=== PATIENT | female | born 1955 | race Caucasian/White ===

== ENCOUNTER 2016-06-05 05:39 | Inpatient (IN) | payer OTHER, MEDICAID ==
--- NOTE | 2016-05-31 14:28 | PCM.ANEPRE ---
Anesthesia Pre-Op Review Reason for Review: STOP BANG 5, HTN Anesthesia Recommendations: Proceed with Procedure Additional Comments STOP BANG 5, HTN. BMI 31 Normal Echo. SVT 2013 Proceed with usual eval DOS Chart Reviewed by: Fredis Workman MD May 31, 2016 14:28
--- NOTE | 2016-06-01 17:50 | PCM.HPSURG ---
Subjective Date of Service: May 24, 2016 Referring Provider: Admitting Physician: Primary Care Physician: Mela Blas Attending Physician: Shen Escobedo MD Chief Complaint SEE BELOW History of Present Illness Patient: Mariluz Lopez Date of : 1955 Visit Type: Pre Op Visit Date: 05/30/2016 02:30 PM This 61 year old female presents for Preop C5-6 ACDF, Allograft and & Plating. History of Present Illness: 1. Preop C5-6 ACDF, Allograft, & Plating Anna Lopez is a 61 year old female referred by Primary Care Provider (PCP) Mela Blas PA-C who presents today's date 05/30/2016 for a preoperative type of appointment concerning the decision for surgery involving C5-6 anterior cervical discectomy and fusion, with allograft bone, percent anterior cervical plating from C5-6 secondary to a diagnosis of cervical spondylosis with myelopathy with related complaints of severe, intractable, and debilitating neck spasm & pain radiating to the lower back, shoulders, upper & lower extremities with dysesthesias, loss of coordination, impaired balance, & bladder spasticity. The patient consulted with Dr. Shen Escobedo M.D. on 05/10/2016 and found to have cervical spondylosis and symptoms of myelopathy. The cervical MRI shows cord compression and bilateral neuroforaminal narrowing at C5-6. She also has C4-5 retrolisthesis. A lateral xray with flexion and extension views shows a subtle decrease in the listhesis with flexion. This is not a significant ligamentous laxity. She was also noted to have rightCL4-5 neural foraminal narrowing, but no right C5 pain. The patient reports constant neck pain, and bilateral shoulder blade pain with flair ups of more intense pain. She reports that her arms have a diffuse tired heavy ache and that she gets episodes of cramping in her hands and feet and the cramping can wake her from sleep. Her hands feel jittery, she drops things and reports loss of coordination in her hands. She has constant low back pain, muscle tightness with flair ups of more severe lumbar spasms. She reports impairment of balance and has bladder spasticity, voiding 2-3 times each night. Cervical extension causes increased neck pain and paresthesias in the hands. She is primarily symptomatic from the cord compression and root compression at the C5-[address] Shen Escobedo M.D. the patient has significant cervical spondylosis with myelopathy related to primarily symptomatic C5-6 level cord & root compression indicating surgical decompression and fusion with instrumented stabilization at C5-6. The discussed all the risks and benefits associated with the procedure on 05/20/2016 as well as reasonable expectations with regards to surgical outcomes & the patient elected to proceed with surgery as planned. The patient denies related complete or acute loss of control of bowel or bladder function, saddle paresthesia or anesthesia. The patient has a pertinent positive past medical, surgical and social history for appendectomy, tubal ligation, lung biopsy, cholecystectomy, hysterectomy, hypertension, fibromyalgia (Dr. Esteban), history of palpitations, history of peripheral edema, chronic abdominal pain/diarrhea/constipation/nausea/vomiting, stress incontinence, nocturia, chronic joint pain, borderline diabetes, frequent headaches, depression, anxiety, possible inner ear disorder, diverticulosis, enteritis, bilateral trigger finger, positive H. pylori, high risk sleep apnea(never completed sleep study), chronic pain management & possibly chronic pain syndrome. The patient's related complaints have been a serious detriment to their happiness and activities of daily living. Having failed conservative treatment the patient presents today for their decision for surgery appointment involving C5-6 anterior cervical discectomy and fusion, with allograft bone, & anterior cervical plating from C5-6 for treatment of cervical spondylosis with myelopathy ; related to severe, intractable, and debilitating neck spasm & pain radiating to the lower back, shoulders, upper & lower extremities with dysesthesias, loss of coordination, impaired balance, & bladder spasticity. The procedure is scheduled to be performed by Dr. Shen Escobedo M.D. on 06/05/2016. PHYSICAL EXAM: This is a well developed, well nourished, female who is alert, cooperative, and appears to be in no acute distress with language and speech that is intact and fluent. There is evidence of recent or remote memory impairment. The patient' s knowledge is appropriate for age and level of education with a anxious affect & exaggerated pain behavior presentation. The patient ambulates with difficulty using a wide shuffling gait. Exam of the head is normocephalic. PERRL, EOMI, without facial droop, hearing grossly intact, nostrils patent, oral cavity and pharynx normal. Exam of the neck supple, without lymphadenopathy or thyromegaly. Exam or the heart reveals regular rate and rhythm without audible murmurs The lungs are clear to auscultation bilaterally The abdomen is non- tender and non-distended Exam of the cervical spine reveals that the skin is grossly intact and without gross deformity, or asymmetry of spinal muscles, decreased range of motion causing exaggerated pain behavior with positive significant multiple posterior cervical & shoulder tender points to palpation. Refused Spurling, positive L' hermitte's and refused distraction. Tone: Intact in the upper and lower extremities. Exam of the right upper extremity reveals that the skin is grossly intact with no significant deformity or joint abnormality. Strength in the deltoids, biceps , triceps, wrist extensors, wrist flexors, and intrinsic is rated 5-/5. There is hyper anesthesia & diminished gross to pinprick & light touch right C6 dermatomal distribution. Radial pulse is intact. DTRs: Biceps 3 +, triceps 3 + , brachioradialis3 +. Exam of the left upper extremity reveals that the skin is grossly intact with no significant deformity or joint abnormality. Strength in the deltoids, biceps , triceps, wrist extensors, wrist flexors, and intrinsic is rated 5/5. There is normal gross sensation to pinprick & light touch. Radial pulse is intact. DTRs: Biceps 3 +, triceps 3 +, brachioradialis 3 +. Exam of the thoracic and lumbar spine reveals the skin is grossly intact without gross deformity, or asymmetry of spinal muscles, diminished range of motion causing significant pain with positive multiple lumbar tender points to palpation without muscular fasciculations appreciated. Exam of the right lower extremity reveals that the skin is grossly intact with no significant deformity or joint abnormality. Strength in the hip flexors, quadriceps, gastrocnemius, tibialis anterior, and extensor hallucis longus is rated 5/5. There is normal gross sensation to pinprick & light touch. There is no edema. Peripheral pulses are intact. No obvious varicosities. Negative straight leg raise and negative Fabers/Patricks. DTRs: Patellar 3 +, cross adductor 3 +, & achillies 3 +. Exam of the left lower extremity reveals that the skin is grossly intact with no significant deformity or joint abnormality. Strength in the hip flexors, quadriceps, gastrocnemius, tibialis anterior, and extensor hallucis longus is rated 5/5. There is normal gross sensation to pinprick & light touch. There is no edema. Peripheral pulses are intact. No obvious varicosities. Negative straight leg raise and negative Fabers/Patricks. DTRs: Patellar 3 +, cross adductor 3 +, & achillies 3 +. CNII-XII within normal limits, difficulty with [id number], [id number]-[id number] & rapid alternating movements in the upper & lower extremities mostly grossly intact. There is negative Romberg's, bilateral clonus, and babinski's. Unable to tandem heel-to-toe walk. Positive bilateral Luis's. Problem List: Problem Description Anxiety Dizziness Diabetes Osteoarthritis Depression with anxiety Non-restorative sleep Fibromyalgia Spondylosis Carpal tunnel syndrome HTN Cigarette nicotine dependence without complication Paroxysmal supraventricular tachycardia Right wrist pain Excessive sweating Adrenal cortical nodule H. pylori GI infection Right-sided low back pain without sciatica Spinal stenosis in cervical region Medical/Surgical/Interim History Reviewed, no change. Last detailed document date:05/30/2016. Family History: Reviewed, no changes. Last detailed document date:05/30/2016. Social History: Tobacco use reviewed. Reviewed, no changes. Last detailed document date: 05/30/2016. Allergies: Ingredient Reaction Medication Name Comment ASPIRIN Nausea/Vomiting Only large amounts of ASA. OXYCODONE Itching Reviewed, no changes. Review of Systems System Neg/Pos Details MS Positive Back pain. Vital Signs Height Time ft in cm Last Measured Height Position % 2:03 PM 5.0 2.00 157.48 05/30/2016 Weight/BSA/BMI Time lb oz kg Context % BMI kg/m2 BSA m2 2:03 PM 178.80 81.102 dressed with shoes 32.70 Blood Pressure Time BP mm/Hg Position Side Site Method Cuff Size 2:03 PM 140/88 sitting left arm manual adult large Temperature/Pulse/Respiration Time Temp F Temp C Temp Site Pulse/min Pattern Resp/ min 2:03 PM 97.3 36.3 temporal 73 regular 20 Pulse Oximetry/FIO2 Time Pulse Ox (Rest %) Pulse Ox (Amb %) O2 Sat O2 LPM Timing FiO2 % L/min Delivery Method 2:03 PM 98 Pain Scale Time Pain Score Method 2:03 PM 6/10 Numeric Pain Intensity Scale Measured By Time Measured by 2:03 PM Cammie Mays MA Physical Exam Exam Findings Details Comments SEE ABOVE Assessment/Plan # Detail Type Description 1. Assessment Cervical spondylosis with myelopathy (M47.12). 2. Assessment Preoperative examination (Z01.818). Patient Plan We including your Attending Surgeon have discussed the risks and benefits associated your scheduled procedure which you have verbally acknowledged understanding including but not limited to the possibility of an outcome that we are unable to predict or was not mentioned. 1. You are scheduled for a C5-6 anterior cervical discectomy and fusion, with allograft bone, & anterior cervical plating from C5-6 with Gregg Hinson M.D. at [facility] on 06/05/2016. 2. Check in time is 6 AM. Also please ignore instructions below if told otherwise by your preadmission nurse or if you do not take the medications listed below. 3. Nothing to eat after midnight the night before surgery. You may take all of your "approved" medications with small sips of water. Remember to take your a.m. hypertension medication if it is a beta barb and ends in "olol. Otherwise ask your doctor if you need to hold your a.m. hypertension medication. 4. No aspirin, ibuprofen, Naprosyn, or other NSAIDs starting 7 days prior to surgery. 5. Please stop Warfarin/Coumadin or other blood thinners such as Plavix, Aggrenox, or Xarelto 7 days prior to your surgical procedure and follow specific instructions from your prescribing provider. 6. Please stop Lovenox bridging in the morning one day prior to procedure. 7. Please stop Suboxone/Buprenorphine at least 4 days prior to procedure. 8. Go to the hospital today to get her preoperative testing done. Take the order form to the surgery desk on the second floor of the hospital, [facility] (main entrance next to the emergency entrance). I will notify you if there is any test results that require further workup prior to surgery. 9. Follow the instructions you were given today, use the cleansing cloths the night before as well as the morning of her surgery. 10. If you are prescribed inhalers, CPAP or BiPAP machines you use at home bring along with you to the hospital. 11. ONLY If you take medications for Diabetes: If you have an insulin pump continue lowest (typically night-time) basal rate into the a.m. If you do not have a pump check h your a.m. blood sugar and hold insulin if BS less than 100. If you are taking long-acting, intermediate acting (NPH) or 70/30 preparation : Take half on day of procedure. If you are taking ultra long-acting insulin such as glargine, Lantus either at night or in the a.m. continue as scheduled ( including day of surgery). If you take short acting regular insulin (insulin not delivered via pump) discontinue on day of procedure. 12. Please call if you have any questions before your surgery: [phone]. Today's instructions/counseling include(s) Pre-operative instructions given to the patient and or legal community health program representative(s) orally and in writing. 13. Our office will contact you if there are any test results that require further workup prior to surgery. Provider Plan The patient's history and examination as well as radiological findings were reviewed with Dr. Shen Escobedo M.D. and conveyed the patient in detail. The findings are consistent with cervical spondylosis with myelopathy and are most likely the cause of the patient's severe, intractable, and debilitating neck spasm & pain radiating to the lower back, shoulders, upper & lower extremities with dysesthesias, loss of coordination, impaired balance, & bladder spasticity. The patient has failed extensive conservative treatment for this condition. The treatment options were discussed with the patient. The options include attempt to live with the condition, reattempt conservative treatment, try a pain management intervention / injection or consider a surgical intervention. We are not extremely optimistic that further conservative treatment, pain management intervention and/or injection will adequately resolve the patient's symptoms of severe, intractable, and debilitating neck spasm & pain radiating to the lower back, shoulders, upper & lower extremities with dysesthesias, loss of coordination, impaired balance, & bladder spasticity. Therefore we recommend C5-6 anterior cervical discectomy and fusion, with allograft bone, & anterior cervical plating from C5-6. The patient was provided/offered educational materials pertaining to their diagnosis and the above discussed procedure. We discussed the risks and benefits associated with this surgery. A spine model was used to explain the nature of this type of surgery. The risk of the required anesthesia was also mentioned including but not limited to organ failure such as heart attack, pneumonia and stroke even . The risk of this type of surgery was also mentioned. Including but not limited to an unsuccessful outcome, residual symptoms, odynophagia, dysphasia or sore throat, referred or radiating posterior spinal myofascial inflammatory pain or spasm, post operative instability, instrumentation failure, sensory changes, blood loss, blood clots, wound infection, spinal cord or nerve damage, CSF or lymph leak, damage to neighboring structures such as the recurrent laryngeal nerve, perforation of the esophagus or trachea, pseudoarthrosis, adjacent level disease, Sharifa's Syndrome, vision loss, voice change, resulting in temporary or permanent dysfunction, even disability, paralysis, and . The recovery of this type of surgery was also mentioned. This includes but is not limited to reasonable expectations for the treatment of myelopathy involving the surgical decompression of the cervical spinal cord; which will stop the progression of the patient's condition but cannot guarantee improvements in any associated physical complaints. The patient verbalized understanding all the risks and benefits, knowing that it is impossible to predict or guarantee every surgical outcome; and would like to proceed with the above discussed procedure anyways. Surgery is scheduled for 06/05/2016 The standard [facility] preoperative screening tests, medicine restrictions, and logistical protocols apply. Any preoperative testing is within normal limits to undergo the above discussed procedure unless otherwise noted in the medical record. Medications (added, continued or stopped this visit): Start Date Medication Directions Stop Date 01/17/2016 buspirone 10 mg tablet take 1 tablet by oral route 2 times every day 01/17/2016 gabapentin 100 mg capsule take 1 capsule by oral route 2 times every day 01/03/2016 gabapentin 300 mg capsule take 2 capsule by oral route every day 05/22/2016 hydrocodone 5 mg-acetaminophen 325 mg tablet take 1 tablet by oral route every 6 hours as needed for pain 06/04/2016 Bittinger 10 mg-325 mg tablet take 1-2 tablet by oral route every 4 - 6 hours as needed for pain 05/22/2016 tramadol 50 mg tablet take 1 - 2 tablets by ORAL route every day as needed 06/04/2016 Valium 5 mg tablet take 1 - 2 Tablet by oral route every 8 hours as needed for spasm Counseling/Educational Factors: Counseling / educational factors reviewed. Counseling / educational factors reviewed. This is a visit of 60 minutes. 50 minutes were spent counseling. The patient was checked out at 4:31 PM. This document may have been created using voice recognition software or other electronic means and may contain inadvertent property supervisor errors. Provider: Jay NORWOOD 05/30/2016 05:46 PM Document generated by: Jay Tan 05/30/2016 05:46 PM CC Providers: Mela Blas [address] [place] [address] [place] [id number] [place] [address] w w w Charlene s r c l i n i c s . o r g Allergy Allergies: Coded Allergies: aspirin (Verified Adverse Reaction, Severe, Nausea,Vomiting, 05/30/16) HIGH DOSE ASPIRIN ONLY oxycodone (Verified Adverse Reaction, Severe, ITCHING, 05/30/16) PMH HEENT History History of ENT Problems?: Yes HEENT History: Positive for:: Hearing Problem Sinus Problem (HX OF SINUSITIS) Cardiovascular History History of Heart Problems?: Yes Cardiovascular History: Positive for:: Atrial Fibrillation (HX SVT) Chest Pain (12/2013 TESTING WNL-PROB R/T SVT) Edema (C/OF UPPER EXTREMITY SWELLING) Hypertension Irregular Heartbeat (HX SVT REPORTS PALPITATIONS) Denies:: Heart Murmur (ECHO 02/2014 EF 65-70%) Valvular Heart Disease Other Cardiac History: C/OF BRUISING EASILY Respiratory History of Respiratory Problem: Yes Respiratory History: Positive for:: Chest Surgery (S/P LUNG BX) Dyspnea ([place] R/T SVT) Denies:: Pneumonia (HX BRONCHITIS) Use of C-PAP Machine Neurological History Hx Neurologic Problems?: Yes Neurological History: Positive for:: Dizziness (R/T SVT) Gastrointestinal History HX of GI Problems?: Yes Gastrointestinal History: Positive for:: Gall Bladder Disease (S/P CRISTIAN) Gastroesphageal Reflux (HX OF UNTREATED H PYLORI-REFERRED TO GI) Other GI Pertinent History: S/P APPY Genitourinary History Hx of Gu Problems?: Yes Female/Male History Reproductive History Female: Denies: Currently ? (S/P BTL) Skin History Skin History: Denies:: History Skin Disorders? Pressure Ulcers Musculoskeletal History Hx Musculoskeletal Problems?: Yes Musculoskeletal History: Positive for:: Fibromyalgia Osteoarthritis Denies:: Back Injury (C/OF LOWER BACK & NECK PAIN) Psycho Social History Hx of Psycho/Social Problems?: Yes Psycho Social History: Positive for:: Anxiety Hx Depression Other History Hx Any Other Health Problems?: Yes Other History: Positive for:: Hospitalization Denies:: Cancer Endocrine Disease (C/OF SWEATS) Thyroid Disease Diabetes: No (BORDERLINE) Social History Smoking Status: Never Smoker Jay Tan PA-C Jun 01, 2016 17:49
[2016-06-05] VITALS (16 sets, daily range): BP systolic 138–181; BP diastolic 75–123; PULSE 62–82; RESP 10–17; O2SAT 92–100
[~2016-06-05] VITALS: Ht 158.8 cm; Wt 79.5 kg
[~2016-06-05 05:39] MED LIST: BUSP10TA2 PO; GABA-500 PO; GABA600T2 PO; HYDR-4003 PO; Lactated Ringer's 1,000 ML IV ONE; TRAM50TA2 PO
[2016-06-05] MEDS ORDERED: Bacitracin 50,000 unit Inj IRRIGATION ONE (06:00)
[2016-06-05] MEDS ORDERED: Thrombin Powder 5,000 Unit TOPICAL ONE (06:00)
[2016-06-05] MEDS ORDERED: CeFAZolin 2 Gm/50 mL D5W Premix IV ONE (06:00)
[2016-06-05] MEDS ORDERED: Lactated Ringer's 500 ML IV PRN (07:01)
[2016-06-05] MEDS ORDERED: Lactated Ringer's 1,000 ML IV SCH (07:01)
[2016-06-05] MEDS ORDERED: HYDROmorphone 1 mg/mL Inj IVPUSH PRN ×2 (07:05→10:10)
[2016-06-05] MEDS ORDERED: hydrOXYzine Inj 25 MG/1 mL SDV IM PRN (07:05)
[2016-06-05] MEDS ORDERED: Atropine 0.4 mg/mL Inj IVPUSH PRN (07:05)
[2016-06-05] MEDS ORDERED: EPHEDrine Sulfate 50 mg/mL Inj IM PRN (07:05)
[2016-06-05] MEDS ORDERED: Phenylephrine 10,000 mCg/mL Inj IVPUSH PRN (07:05)
[2016-06-05] MEDS ORDERED: Ondansetron 2 mg/mL 2 mL Inj IVPUSH PRN ×2 (07:05→10:10)
[2016-06-05] MEDS ORDERED: Labetalol 5 mg/mL 4 mL Inj IV PRN (07:05)
[2016-06-05] MEDS ORDERED: MetoCLOpramide 5 mg/mL 2 mL Inj IVPUSH PRN (07:05)
[2016-06-05] MEDS ORDERED: EPHEDrine Sulfate 50 mg/mL Inj IVPUSH PRN (07:05)
[2016-06-05] MEDS ORDERED: hydrALAZINE 20 mg/mL Inj IVPUSH PRN (07:05)
[2016-06-05] MEDS ORDERED: Bupivacaine-MPF 0.5% 30 mL Inj INFILTRATE ONE (07:26)
--- NOTE | 2016-06-05 07:52 | PCM.HPANE ---
Patient Data Surgeon Admitting Provider: Attending Provider:Shen Escobedo MD Primary Care Physician:Mela Blas Other Provider:Talita Perezingham Anesthesia Reason for Visit Cervical Spondylosis With Myelopathy Ht/WT & BMI Height (Feet): 5 Height (Inches): 2.5 Weight (Kilograms): 79.5 Body Mass Index 31.00 Allergies Coded Allergies: aspirin (Verified Adverse Reaction, Severe, Nausea,Vomiting, 05/30/16) HIGH DOSE ASPIRIN ONLY oxycodone (Verified Adverse Reaction, Severe, ITCHING, 05/30/16) Past Anesthesia History Anesthesia History: Denies:: Anesthesia Reactions, Malignant Hyperthermia Diabetes History Hx Diabetes?: No Type of Diabetes: Type II Glycemic Control: Diet Controlled Current Bedside Blood Glucose: 100 MRSA MRSA: No Medications Hypertension Medication: No Home Meds Incl Beta Tyrell: No Active Scripts Hydrocodone-Acetaminophen 5-325 mg 1 Each Tablet1 Tablet PO QID PRN For Pain # 12 TABLET Ref 0 Prov:Aftab Benitez PAC 10/14/15 Reported Medications Buspirone 10 Mg Iytzaa21 Mg PO DAILY Ref 0 05/30/16 Tramadol 50 Mg [id number] Mg PO DAILY PRN For Pain Ref 0 05/30/16 Gabapentin 600 Mg [id number] Mg PO HS 30 Days Ref 0 07/26/14 Discontinued Reported Medications Gabapentin 100 Mg [id number] Mg PO BID 30 Days Ref 0 05/30/16 Aspirin (Aspir-Low)81 Mg Tablet.dr81 Mg PO DAILY 09/24/13 Hydrochlorothiazide 12.5 Mg Retvwvo45.5 Mg PO DAILY 09/24/13 Losartan Potassium 100 Mg Qkpslj777 Mg PO DAILY 09/24/13 History History of ENT Problems?: Yes HEENT History: Positive for:: Hearing Problem Sinus Problem (HX OF SINUSITIS) Hx of Heart Problems?: Yes Cardiovascular History: Positive for:: Atrial Fibrillation (HX SVT) Chest Pain (12/2013 TESTING WNL-PROB R/T SVT) Edema (C/OF UPPER EXTREMITY SWELLING) Hypertension Irregular Heartbeat (HX SVT REPORTS PALPITATIONS) Denies:: Heart Murmur (ECHO 02/2014 EF 65-70%) Valvular Heart Disease Other Cardiac History: C/OF BRUISING EASILY Hx of Respiratory Problem?: Yes Respiratory History: Positive for:: Chest Surgery (S/P LUNG BX) Dyspnea ([place] R/T SVT) Denies:: Pneumonia (HX BRONCHITIS) Use of C-PAP Machine Hx Neurologic Problems?: Yes Neurological History: Positive for:: Dizziness (R/T SVT) Hx of GI Problems?: Yes Gastrointestinal History: Positive for:: Gall Bladder Disease (S/P CRISTIAN) Gastroesphageal Reflux (HX OF UNTREATED H PYLORI-REFERRED TO GI) Other GI Pertinent History: S/P APPY Hx of Problems?: Yes Female Hx: Denies:: Currently Skin History: Denies:: History Skin Disorders? Pressure Ulcers Hx Musculoskeletal Problems?: Yes Musculoskeletal History: Positive for:: Fibromyalgia Osteoarthritis Denies:: Back Injury (C/OF LOWER BACK & NECK PAIN) Hx of Psycho/Social Problems?: Yes Psycho Social History: Positive for:: Anxiety Hx Depression Hx Surgeries?: Yes (LUNG BX,HYST,BTL,CRISTIAN,APPY) Hx Any Other Health Problems?: Yes Other History: Positive for:: Hospitalization Denies:: Cancer Endocrine Disease (C/OF SWEATS) Thyroid Disease History Blood Transfusions: Denies:: Blood Transfusions Hx Diabetes: NoBedside Blood Glucose: 100 Smoking Status: Current Every Day Smoker Never Smoker Have You Smoked inLast 12 mo: YesApprox How Many Cigarettes/day: 35YR HX Stop/Bang S-Snoring: Do You Snore Loudly: Yes T-Tired: feel tired, fatigued: Yes O-Obsered: Observed not breath: Yes P-Blood Pressure: treated: Yes B- Body Mass Index > 35 kg/m2: No A- Age over 50: Yes N- Neck Large Circumference: No G- Gender Male: No JENI Total Score: 5 JENI Risk Assessment: High Risk, =/>3 Yes Risk Assessment Category Category 1A: Patient has history of documented sleep apnea, and HAS NOT received any narcotic, sedative or anesthesia administration during this stay. Category 1B: Patient has history of documented sleep apnea, and HAS received any narcotic , sedative or anesthesia administration during this stay Category 2: Patient has SUSPECTED Obstructive Sleep Apnea, and HAS received any narcotic , sedative or anesthesia administration during this stay. Category 3: Patient has SUSPECTED Obstructive Sleep Apnea and HAS NOT received narcotic, sedative or anesthesia administration during this stay. Category 4: Outpatient in Procedural Areas with known sleep apnea or who screen positive for High Risk via the STOP/BANG questionnaire. Exam Exam Vital Signs Vital Signs Date Time Temp Pulse Resp B/P Pulse Ox O2 Delivery O2 Flow Rate FiO2 06/05/16 06:19 36.1 63 17 151/80 96 Room Air General Appearance: Moderate Distress (neck discomfort) HEENT/AIRWAY: MP 2, Neck Movement (limited to pain with extension) Lungs: Clear to Auscultation, Normal Air Movement Heart: Exam Unremarkable, Regular Rate/Rhythm, No Murmurs/Rubs/Gallops Meds/Labs/Diagnostics Admission Meds Current Medications Lactated Ringer's (Lr) 1,000 ml @ 120 mls/hr Q8H20M ONCE IV Last administered on 06/05/16t 05:53; Start 06/05/16 at 05:00; Stop 06/05/16 at 13:19 Bedside Blood Glucose: 100 Plan Impression Patient chart reviewed, patient interviewed and anesthestic plan with risks, benefits, and alternatives discussed, and informed consent obtained. NPO Status: 2100 06/04/16 ASA Physical Status: ASA3 Severe Disease Anesthetic Support Modalities: [place] Scope Anesthetic Plan: GA Bene/Risks/Altern/Consents: Yes HP Complete Prior to Induction: Yes Shankar Diana MD Jun 05, 2016 07:03
--- NOTE | 2016-06-05 08:25 | DRSVH ---
PROCEDURE: X-RAY CERVICAL SPINE, 1 VIEW INDICATIONS: CERVICAL SPONDYLOSIS WITH MYELOPATHY TECHNIQUE: Single lateral view of the cervical spine acquired. COMPARISON: None. FINDINGS: Bones: A localizer device is present anteriorly at the C5-C6 disc space level. There is a screw proje cting over the C5 vertebral body. Soft tissues: No prevertebral soft tissue swelling. IMPRESSION: Localization of C5 and C5-C6 as described above. Findings discussed with Dr. Escobedo on at 0818 hrs. Dictated by: Alex Box M.D. on 06/05/2016 at 8:22 Approved by: Alex Box M.D. on 06/05/2016 at 8:22
[2016-06-05] MEDS ORDERED: Promethazine 12.5 mg/50 mL-NS 12.5 MG in IV Premix 1 EACH IV STA (10:03)
[2016-06-05] MEDS ORDERED: Sodium Biphos-Phos 133 mL Enema RECTAL PRN (10:10)
[2016-06-05] MEDS ORDERED: Magnesium Hydroxide 10 mL Oral Concentration PO PRN (10:10)
[2016-06-05] MEDS ORDERED: hydrOXYzine Pamoate 25 mg Capsule PO PRN (10:10)
[2016-06-05] MEDS ORDERED: Polyethylene Glycol (PEG) 17 Gm Powder PO PRN (10:10)
[2016-06-05] MEDS: Dexamethasone 4 mg/mL Inj IVPUSH SCH ×3 (10:10→22:28)
[2016-06-05] MEDS ORDERED: Benzocaine-Menthol Lozenge 2/Pkg PO PRN (10:10)
[2016-06-05] MEDS ORDERED: Senna-Docusate 8.6-50 mg Tablet PO PRN (10:10)
[2016-06-05] MEDS: fentaNYL-PF 50 mCg/mL 2 mL Inj IVPUSH PRN ×2 (10:14→10:32)
--- NOTE | 2016-06-05 10:16 | OP ---
[address] [address] OPERATIVE REPORT PATIENT: ESPERANZA HODGSON : 1955 MR#: [id number] ADMIT: 06/05/2016 JOB ID: [id number] DATE OF SURGERY: 06/05/2016 PREOPERATIVE DIAGNOSIS(ES): Cervical spondylosis with myelopathy. POSTOPERATIVE DIAGNOSIS(ES): Cervical spondylosis with myelopathy. PROCEDURE: C5-6 anterior cervical diskectomy and fusion with allograft bone and C5-6 anterior plating. SURGEON: Shen Escobedo MD. MILK PICKUP TRUCK DRIVER: Jay Tan PA-C. ANESTHESIA: General with Shankar Diana MD. ESTIMATED BLOOD LOSS: 50 cc. DRAINS: One AWILDA. COMPLICATIONS: None. INDICATIONS: This patient presented with symptoms of cervical myelopathy. She was found to have spondylosis with cord compression at C5-6 and bilateral neural foraminal narrowing. PROCEDURE IN DETAIL: The patient was taken to the operating room on June 05, 2016, placed under general anesthesia, placed supine with her head supported on a donut, prepped and draped sterile. The right side of the neck was infiltrated with 0.5% plain Marcaine. An incision was made transversely on the right side of the neck extending from the midline to the sternocleidomastoid at the level of C5. The incision was carried down sharply through the skin and subcutaneous tissues. Hemostasis was achieved with the bipolar electrocautery. The platysma was incised and blunt dissection was used to create a plane just medial to the sternocleidomastoid. The carotid was palpated and mobilized laterally. The esophagus and trachea were mobilized medially with an appendectomy retractor. A 12 mm Lincoln pin was placed into the vertebral body of C5 and used as a marker for the intraoperative lateral C-spine x-ray. The x-ray demonstrated the Lincoln pin in the vertebral body of C5, and also gave a measurement of the depth of the C5 vertebral body, which I extended approximately 45 mm beyond the tip of the 12 mm Lincoln pin. For this reason, I felt that the 12 mm screws would work well in this patient. Deep retractors were placed with the blades beneath the longus coli musculature at the C5-6 level and distracted open. A second Lincoln pin was put into the vertebral body of C6. The Lincoln pins were distracted open at the C5-6 level. The microscope was brought into position, sighting down the C5-6 disk space. The annulus of the C5-6 disk was disrupted with the monopolar, then the disk material was removed piecemeal with curette. The high-speed bur was used to take down the anterior osteophytes at C5-6, the posterior osteophytes and widen the disk space. The posterior longitudinal ligament was resected and undermined with the Kerrison punch. The patient had bilateral foraminotomies to decompress the C6 roots bilaterally. The rasp set was then used to prepare the C5-6 disk level for the fusion rasping to 8 mm. An 8 mm allograft bone was selected to fit the C5-6 level. This donor bone measured 8 mm and tapered to 6 mm. The disk space was irrigated with antibiotic solution and inspected for hemostasis and the bone graft was placed at C5-6. The distraction was released and the bone graft was held firmly in position. A plate was then selected to span C5-6. The 16 mm dynamic titanium plate, a Hoang plate, that was manufactured by [employer], was selected to span the C5-6 level. The plate was then secured to the vertebral bodies of C5 and C6 with self-drilling fixed angle 12 mm titanium screws. A second intraoperative lateral C-spine film was obtained to confirm good placement of the bone graft, good placement of the plate and screws. The screws were all locked into position. The spacing bar was removed from the Hoang plate. Then, the wound was irrigated with antibiotic solution. Hemostasis was achieved with the bipolar electrocautery. A AWILDA drain was placed at the base of the wound, brought out through a separate stab wound, and hooked up to bulb suction. The platysma was approximated with 3-0 Vicryl. The skin was closed with 4-0 Vicryl. Steri-Strips were applied to the skin, which was dressed with Telfa, gauze and tape, and the patient was placed in a soft cervical collar.
--- NOTE | 2016-06-05 10:21 | DRSVH ---
PROCEDURE: X-RAY CERVICAL SPINE, 1 VIEW INDICATIONS: CERVICAL SPINE SURGERY TECHNIQUE: Single lateral view of the cervical spine acquired. COMPARISON: [facility], CR, XR CERVICAL SPINE 1VW, 06/05/2016, 7:58. FINDINGS: Bones: No fractures or dislocations to the C6 level. Anterior fusion of C5-C6 has been performed. N o suspicious bony lesions. Soft tissues: No prevertebral soft tissue swelling. IMPRESSION: C5-C6 ACDF. Dictated by: Alex Box M.D. on 06/05/2016 at 10:19 Approved by: Alex Box M.D. on 06/05/2016 at 10:19
--- NOTE | 2016-06-05 10:23 | PCM.ANEP1 ---
Post Anesthesia Phase 1 PACU Phase 1 Assessment Date of Service: May 24, 2016 Vital Signs Vital Signs Date Time Temp Pulse Resp B/P Pulse Ox O2 Delivery O2 Flow Rate FiO2 06/05/16 10:10 74 10 181/83 100 Simple Mask 9 06/05/16 10:05 81 13 172/87 100 Simple Mask 9 06/05/16 10:01 36.2 82 15 164/96 100 Simple Mask 9 06/05/16 06:19 36.1 63 17 151/80 96 Room Air Anesthetic Administered: GA Level of Alertness: Awake, talking KERNS's with Equal Strength: Yes Pain: No Nausea or Vomiting: No Oxygen Delivery: Simple Mask Lungs: Clear to Auscultation, Normal Air Movement Shankar Diana MD Jun 05, 2016 10:23
--- NOTE | 2016-06-05 10:36 | PCM.ANEP2 ---
Post Anesthesia Evaluation ASA/CMS Post Anesthesia VS in Patient's Normal Range?: Yes Resp Stable; Airway Patent?: Yes CV Function & Hydration Stable: Yes Mental Status Recovered?: Yes Pain control Satisfactory?: Yes N/V Control Satisfactory?: Yes Shankar Diana MD Jun 05, 2016 10:35
[2016-06-05] MEDS ORDERED: Benzocaine (Hurricaine) 20% Unit-Dose Spray MUC_MEMBRM PRN (13:35)
[2016-06-05] MEDS ORDERED: fentaNYL-PF 50 mCg/mL 2 mL Inj ONE ×2 (13:46→14:31)
[2016-06-05] MEDS ORDERED: HYDROmorphone 0.5 mg/0.5 mL iSecure Syringe ONE (13:46)
[2016-06-05] MEDS: HYDROcodone-APAP 10-325 mg PO PRN ×2 (14:15→22:28)
[2016-06-05] MEDS ORDERED: hydrOXYzine Pamoate 25 mg Capsule ONE (14:17)
[2016-06-05] MEDS ORDERED: Remifentanil 1 mg/3 mL Inj ONE (14:31)
[2016-06-05] MEDS ORDERED: Ketamine 10 mg/mL 20 mL Inj ONE (14:31)
[2016-06-05] MEDS: Lactated Ringer's 1,000 ML IV SCH (15:26)
--- NOTE | 2016-06-05 16:05 | NUR ---
Arrival on [facility] Pt transferred from PACU at 1445. Pt alert and oriented x3. VSS. PIV asymptomatic and intact. No IV fluids running. Anterior neck dressing clean, dry, and intact; covered with soft neck collar. AWILDA drain in anterior neck draining serosanguineous fluid. Pt c/o 5/10 pain. Hydrocodone and vistaril were administered just before pt came to unit. Personal possessions were not sent with pt. Will call OR to have them brought to pt room. Care continues.
[2016-06-05] MEDS: CeFAZolin Inj 2 GM in IV Premix 1 EACH IV SCH (16:57)
[2016-06-05] MEDS: Senna-Docusate 8.6-50 mg Tablet PO SCH (21:11)
[2016-06-06] MEDS: CeFAZolin Inj 2 GM in IV Premix 1 EACH IV SCH (00:27)
[2016-06-06] MEDS: Lactated Ringer's 1,000 ML IV SCH ×2 (01:57→06:08)
--- NOTE | 2016-06-06 02:23 | NUR ---
Pain Patient states pain 6/10. Hydrocodone given. Patient's pain level came down to 4-5/10. Patient resting in bed using incentive spirometer frequently. Patient OOB to bathroom stand by assist. Tolerated activity well.
[2016-06-06] MEDS: Dexamethasone 4 mg/mL Inj IVPUSH SCH ×2 (04:06→10:37)
[2016-06-06 05:54] VITALS: BP 123/76; PULSE 56; RESP 15; O2SAT 92
[2016-06-06] MEDS: Senna-Docusate 8.6-50 mg Tablet PO SCH (07:37)
[2016-06-06] MEDS: HYDROcodone-APAP 10-325 mg PO PRN (07:39)
[2016-06-06] MEDS ORDERED: BusPIRone 15 mg Dividose Tablet PO SCH (08:30)
--- NOTE | 2016-06-06 09:35 | PCM.DISURG ---
Surgical Discharge Instruction Date of Service Jun 06, 2016 Dates of Hospitalization Date of Hospital Admission Jun 05, 2016 at 14:30 Providers Admitting Physician: Shen Escobedo MD Primary Care Physician: Mela Blas Attending Physician: Shen Escobedo MD Discharge Diagnosis Discharge Diagnosis Status post C5-6 anterior cervical discectomy and fusion, with allograft bone, & anterior cervical plating from C5-6 Post Operative diagnosis Status post C4-5 anterior cervical discectomy and fusion with allograft bone, & anterior cervical plating from C4-5 Additional Instructions Discharge Instructions Anterior Cervical Discectomy and Fusion What is my recovery like? The hospital stay is usually overnight. After the surgery, you might have a sore throat. This is very common due to the retraction (moving) of the esophagus and trachea. The sore throat usually resolves in 1-2 weeks. Drinking lots of fluids will help improve the symptoms. The cervical collar should be worn at night and for comfort only during the day. On your postoperative follow- up appointments, your Doctor will perform X-rays to see how well everything is healing. What are my restrictions? You should not lift anything heavier than five pounds. Avoid excessive movements of your neck until instructed specifically by your Doctor. Can I Shower? You may shower when you go home. You must remove the outside dressing on the 7th day after surgery, or change dressing as needed if soiled or saturated ( replacing new sterile gauze & water proof dressing) otherwise leave alone. The small pieces of tape (steri-strips) directly on top of the incision may get wet. The steri-strips will fall off on their own. Can I drive? No, you should not drive until specifically given permission from your Doctor in a follow up appointment. Most Patient's can drive in 2-3 weeks if they are not taking narcotic pain medications or muscle relaxers. You may ride in a car, but should avoid trips longer than two hours in duration. When can I return work / sports? Your Doctor will discuss your return to work with you on your first postoperative follow-up appointment. Most patients may return to work within 2 weeks for sedentary jobs. More physically demanding jobs may require 3-6 months of healing before such work can be considered. When should I call the doctor? You should call your Doctor or go to the Emergency Department if you develop chest pain, shortness of breath, a temperature greater than 101.5 F, severe uncontrolled pain or weakness, loss of bowel or bladder function, choking, swelling, lots or drainage, pus discharge or constipation. Instructions Regarding Comfort & Pain Medication Use: During the recovery period , even with the use of pain medication, you may experience pain at the site of surgery. You may also have the same type of pain you had before surgery. Please use your pain scale as a guide for taking your pain medication. When your pain is greater than 4 out of 10, or when your pain reaches your personal tolerable level of pain, take your pain medication as prescribed. Use your pain medication on an 'as needed' basis. This means if your pain level is within your tolerable level of pain you DO NOT need to take the medication. As you get better, you will notice you can increase the time interval between doses and decrease the number of tablets you are taking, gradually taking less and less pain medication. Taking pain medication when it is not necessary (for example when your pain is tolerable or acceptable) can result in dangerous side effects and over- sedation. Signs and symptoms of over-sedation include: drowsiness, excessive sleeping, slow or difficult breathing, slurred speech, impaired thinking, confusion, impaired motor coordination. If you have any of these symptoms stop taking the medication and immediately contact your doctor. IF SYMPTOMS ARE LIFE THREATENING CALL 911. To decrease pain and swelling, frequently apply an ice pack for 20 min intervals with at least one hour off. When to take Acetaminophen for pain? If you don't have liver problems, allergies and/or Tylenol is not in your current pain medication. Take Extra Strength Tylenol 500mg 2 tabs by mouth every 6 hours as needed for pain. DO NOT EXCEED 8 TABS PER DAY. Follow Up Plan Follow Up Plan Please follow up with physician medical assistant supervisor in outpatient neurosurgical clinic in 1 week for wound check. Follow-up Provider (F9): Jay Tan PA-C Additional Information Attending Statement All documentation reviewed & orders authorized by Dr. Shen Escobedo M.D. Jay Tan PA-C Jun 06, 2016 09:35
--- NOTE | 2016-06-06 09:45 | PCM.DC.SUR ---
Discharge Summary Date of Service: Jun 06, 2016 Date of Hospital Admission: Jun 05, 2016 at 14:30 Date of Operation(s): 06/05/2016 Date of Discharge: 06/06/2016 Diagnosis at Time of Discharge Status post C5-6 anterior cervical discectomy and fusion, with allograft bone, & anterior cervical plating from C5-6 Problems: Operation C5-6 anterior cervical discectomy and fusion, with allograft bone, & anterior cervical plating from C5-6 Brief History and Physical: Patient: Mariluz Lopez Date of : 1955 Visit Type: Pre Op Visit Date: 05/30/2016 02:30 PM This 61 year old female presents for Preop C5-6 ACDF, Allograft and & Plating. History of Present Illness: 1. Preop C5-6 ACDF, Allograft, & Plating Anna Lopez is a 61 year old female referred by Primary Care Provider (PCP) Mela Blas PA-C who presents today's date 05/30/2016 for a preoperative type of appointment concerning the decision for surgery involving C5-6 anterior cervical discectomy and fusion, with allograft bone, percent anterior cervical plating from C5-6 secondary to a diagnosis of cervical spondylosis with myelopathy with related complaints of severe, intractable, and debilitating neck spasm & pain radiating to the lower back, shoulders, upper & lower extremities with dysesthesias, loss of coordination, impaired balance, & bladder spasticity. The patient consulted with Dr. Shen Escobedo M.D. on 05/10/2016 and found to have cervical spondylosis and symptoms of myelopathy. The cervical MRI shows cord compression and bilateral neuroforaminal narrowing at C5-6. She also has C4-5 retrolisthesis. A lateral xray with flexion and extension views shows a subtle decrease in the listhesis with flexion. This is not a significant ligamentous laxity. She was also noted to have rightCL4-5 neural foraminal narrowing, but no right C5 pain. The patient reports constant neck pain, and bilateral shoulder blade pain with flair ups of more intense pain. She reports that her arms have a diffuse tired heavy ache and that she gets episodes of cramping in her hands and feet and the cramping can wake her from sleep. Her hands feel jittery, she drops things and reports loss of coordination in her hands. She has constant low back pain, muscle tightness with flair ups of more severe lumbar spasms. She reports impairment of balance and has bladder spasticity, voiding 2-3 times each night. Cervical extension causes increased neck pain and paresthesias in the hands. She is primarily symptomatic from the cord compression and root compression at the C5-[address] Shen Escobedo M.D. the patient has significant cervical spondylosis with myelopathy related to primarily symptomatic C5-6 level cord & root compression indicating surgical decompression and fusion with instrumented stabilization at C5-6. The discussed all the risks and benefits associated with the procedure on 05/20/2016 as well as reasonable expectations with regards to surgical outcomes & the patient elected to proceed with surgery as planned. The patient denies related complete or acute loss of control of bowel or bladder function, saddle paresthesia or anesthesia. The patient has a pertinent positive past medical, surgical and social history for appendectomy, tubal ligation, lung biopsy, cholecystectomy, hysterectomy, hypertension, fibromyalgia (Dr. Esteban), history of palpitations, history of peripheral edema, chronic abdominal pain/diarrhea/constipation/nausea/vomiting, stress incontinence, nocturia, chronic joint pain, borderline diabetes, frequent headaches, depression, anxiety, possible inner ear disorder, diverticulosis, enteritis, bilateral trigger finger, positive H. pylori, high risk sleep apnea(never completed sleep study), chronic pain management & possibly chronic pain syndrome. The patient's related complaints have been a serious detriment to their happiness and activities of daily living. Having failed conservative treatment the patient presents today for their decision for surgery appointment involving C5-6 anterior cervical discectomy and fusion, with allograft bone, & anterior cervical plating from C5-6 for treatment of cervical spondylosis with myelopathy ; related to severe, intractable, and debilitating neck spasm & pain radiating to the lower back, shoulders, upper & lower extremities with dysesthesias, loss of coordination, impaired balance, & bladder spasticity. The procedure is scheduled to be performed by Dr. Shen Escobedo M.D. on 06/05/2016. PHYSICAL EXAM: This is a well developed, well nourished, female who is alert, cooperative, and appears to be in no acute distress with language and speech that is intact and fluent. There is evidence of recent or remote memory impairment. The patient' s knowledge is appropriate for age and level of education with a anxious affect & exaggerated pain behavior presentation. The patient ambulates with difficulty using a wide shuffling gait. Exam of the head is normocephalic. PERRL, EOMI, without facial droop, hearing grossly intact, nostrils patent, oral cavity and pharynx normal. Exam of the neck supple, without lymphadenopathy or thyromegaly. Exam or the heart reveals regular rate and rhythm without audible murmurs The lungs are clear to auscultation bilaterally The abdomen is non- tender and non-distended Exam of the cervical spine reveals that the skin is grossly intact and without gross deformity, or asymmetry of spinal muscles, decreased range of motion causing exaggerated pain behavior with positive significant multiple posterior cervical & shoulder tender points to palpation. Refused Spurling, positive L' hermitte's and refused distraction. Tone: Intact in the upper and lower extremities. Exam of the right upper extremity reveals that the skin is grossly intact with no significant deformity or joint abnormality. Strength in the deltoids, biceps , triceps, wrist extensors, wrist flexors, and intrinsic is rated 5-/5. There is hyper anesthesia & diminished gross to pinprick & light touch right C6 dermatomal distribution. Radial pulse is intact. DTRs: Biceps 3 +, triceps 3 + , brachioradialis3 +. Exam of the left upper extremity reveals that the skin is grossly intact with no significant deformity or joint abnormality. Strength in the deltoids, biceps , triceps, wrist extensors, wrist flexors, and intrinsic is rated 5/5. There is normal gross sensation to pinprick & light touch. Radial pulse is intact. DTRs: Biceps 3 +, triceps 3 +, brachioradialis 3 +. Exam of the thoracic and lumbar spine reveals the skin is grossly intact without gross deformity, or asymmetry of spinal muscles, diminished range of motion causing significant pain with positive multiple lumbar tender points to palpation without muscular fasciculations appreciated. Exam of the right lower extremity reveals that the skin is grossly intact with no significant deformity or joint abnormality. Strength in the hip flexors, quadriceps, gastrocnemius, tibialis anterior, and extensor hallucis longus is rated 5/5. There is normal gross sensation to pinprick & light touch. There is no edema. Peripheral pulses are intact. No obvious varicosities. Negative straight leg raise and negative Fabers/Patricks. DTRs: Patellar 3 +, cross adductor 3 +, & achillies 3 +. Exam of the left lower extremity reveals that the skin is grossly intact with no significant deformity or joint abnormality. Strength in the hip flexors, quadriceps, gastrocnemius, tibialis anterior, and extensor hallucis longus is rated 5/5. There is normal gross sensation to pinprick & light touch. There is no edema. Peripheral pulses are intact. No obvious varicosities. Negative straight leg raise and negative Fabers/Patricks. DTRs: Patellar 3 +, cross adductor 3 +, & achillies 3 +. CNII-XII within normal limits, difficulty with [id number], [id number] & rapid alternating movements in the upper & lower extremities mostly grossly intact. There is negative Romberg's, bilateral clonus, and babinski's. Unable to tandem heel-to-toe walk. Positive bilateral Luis's. Problem List: Problem Description Anxiety Dizziness Diabetes Osteoarthritis Depression with anxiety Non-restorative sleep Fibromyalgia Spondylosis Carpal tunnel syndrome HTN Cigarette nicotine dependence without complication Paroxysmal supraventricular tachycardia Right wrist pain Excessive sweating Adrenal cortical nodule H. pylori GI infection Right-sided low back pain without sciatica Spinal stenosis in cervical region Medical/Surgical/Interim History Reviewed, no change. Last detailed document date:05/30/2016. Family History: Reviewed, no changes. Last detailed document date:05/30/2016. Social History: Tobacco use reviewed. Reviewed, no changes. Last detailed document date: 05/30/2016. Allergies: Ingredient Reaction Medication Name Comment ASPIRIN Nausea/Vomiting Only large amounts of ASA. OXYCODONE Itching Reviewed, no changes. Review of Systems System Neg/Pos Details MS Positive Back pain. Vital Signs Height Time ft in cm Last Measured Height Position % 2:03 PM 5.0 2.00 157.48 05/30/2016 Weight/BSA/BMI Time lb oz kg Context % BMI kg/m2 BSA m2 2:03 PM 178.80 81.102 dressed with shoes 32.70 Blood Pressure Time BP mm/Hg Position Side Site Method Cuff Size 2:03 PM 140/88 sitting left arm manual adult large Temperature/Pulse/Respiration Time Temp F Temp C Temp Site Pulse/min Pattern Resp/ min 2:03 PM 97.3 36.3 temporal 73 regular 20 Pulse Oximetry/FIO2 Time Pulse Ox (Rest %) Pulse Ox (Amb %) O2 Sat O2 LPM Timing FiO2 % L/min Delivery Method 2:03 PM 98 Pain Scale Time Pain Score Method 2:03 PM 6/10 Numeric Pain Intensity Scale Measured By Time Measured by 2:03 PM Cammie Mays MA Physical Exam Exam Findings Details Comments SEE ABOVE Assessment/Plan # Detail Type Description 1. Assessment Cervical spondylosis with myelopathy (M47.12). 2. Assessment Preoperative examination (Z01.818). Patient Plan We including your Attending Surgeon have discussed the risks and benefits associated your scheduled procedure which you have verbally acknowledged understanding including but not limited to the possibility of an outcome that we are unable to predict or was not mentioned. 1. You are scheduled for a C5-6 anterior cervical discectomy and fusion, with allograft bone, & anterior cervical plating from C5-6 with Gregg Hinson M.D. at [facility] on 06/05/2016. 2. Check in time is 6 AM. Also please ignore instructions below if told otherwise by your preadmission nurse or if you do not take the medications listed below. 3. Nothing to eat after midnight the night before surgery. You may take all of your "approved" medications with small sips of water. Remember to take your a.m. hypertension medication if it is a beta barb and ends in "olol. Otherwise ask your doctor if you need to hold your a.m. hypertension medication. 4. No aspirin, ibuprofen, Naprosyn, or other NSAIDs starting 7 days prior to surgery. 5. Please stop Warfarin/Coumadin or other blood thinners such as Plavix, Aggrenox, or Xarelto 7 days prior to your surgical procedure and follow specific instructions from your prescribing provider. 6. Please stop Lovenox bridging in the morning one day prior to procedure. 7. Please stop Suboxone/Buprenorphine at least 4 days prior to procedure. 8. Go to the hospital today to get her preoperative testing done. Take the order form to the surgery desk on the second floor of the hospital, [facility] (main entrance next to the emergency entrance). I will notify you if there is any test results that require further workup prior to surgery. 9. Follow the instructions you were given today, use the cleansing cloths the night before as well as the morning of her surgery. 10. If you are prescribed inhalers, CPAP or BiPAP machines you use at home bring along with you to the hospital. 11. ONLY If you take medications for Diabetes: If you have an insulin pump continue lowest (typically night-time) basal rate into the a.m. If you do not have a pump check h your a.m. blood sugar and hold insulin if BS less than 100. If you are taking long-acting, intermediate acting (NPH) or 70/30 preparation : Take half on day of procedure. If you are taking ultra long-acting insulin such as glargine, Lantus either at night or in the a.m. continue as scheduled ( including day of surgery). If you take short acting regular insulin (insulin not delivered via pump) discontinue on day of procedure. 12. Please call if you have any questions before your surgery: [phone]. Today's instructions/counseling include(s) Pre-operative instructions given to the patient and or legal mortician supplies sales representative(s) orally and in writing. 13. Our office will contact you if there are any test results that require further workup prior to surgery. Provider Plan The patient's history and examination as well as radiological findings were reviewed with Dr. Shen Escobedo M.D. and conveyed the patient in detail. The findings are consistent with cervical spondylosis with myelopathy and are most likely the cause of the patient's severe, intractable, and debilitating neck spasm & pain radiating to the lower back, shoulders, upper & lower extremities with dysesthesias, loss of coordination, impaired balance, & bladder spasticity. The patient has failed extensive conservative treatment for this condition. The treatment options were discussed with the patient. The options include attempt to live with the condition, reattempt conservative treatment, try a pain management intervention / injection or consider a surgical intervention. We are not extremely optimistic that further conservative treatment, pain management intervention and/or injection will adequately resolve the patient's symptoms of severe, intractable, and debilitating neck spasm & pain radiating to the lower back, shoulders, upper & lower extremities with dysesthesias, loss of coordination, impaired balance, & bladder spasticity. Therefore we recommend C5-6 anterior cervical discectomy and fusion, with allograft bone, & anterior cervical plating from C5-6. The patient was provided/offered educational materials pertaining to their diagnosis and the above discussed procedure. We discussed the risks and benefits associated with this surgery. A spine model was used to explain the nature of this type of surgery. The risk of the required anesthesia was also mentioned including but not limited to organ failure such as heart attack, pneumonia and stroke even . The risk of this type of surgery was also mentioned. Including but not limited to an unsuccessful outcome, residual symptoms, odynophagia, dysphasia or sore throat, referred or radiating posterior spinal myofascial inflammatory pain or spasm, post operative instability, instrumentation failure, sensory changes, blood loss, blood clots, wound infection, spinal cord or nerve damage, CSF or lymph leak, damage to neighboring structures such as the recurrent laryngeal nerve, perforation of the esophagus or trachea, pseudoarthrosis, adjacent level disease, Sharifa's Syndrome, vision loss, voice change, resulting in temporary or permanent dysfunction, even disability, paralysis, and . The recovery of this type of surgery was also mentioned. This includes but is not limited to reasonable expectations for the treatment of myelopathy involving the surgical decompression of the cervical spinal cord; which will stop the progression of the patient's condition but cannot guarantee improvements in any associated physical complaints. The patient verbalized understanding all the risks and benefits, knowing that it is impossible to predict or guarantee every surgical outcome; and would like to proceed with the above discussed procedure anyways. Surgery is scheduled for 06/05/2016 The standard [facility] preoperative screening tests, medicine restrictions, and logistical protocols apply. Any preoperative testing is within normal limits to undergo the above discussed procedure unless otherwise noted in the medical record. Medications (added, continued or stopped this visit): Start Date Medication Directions Stop Date 01/17/2016 buspirone 10 mg tablet take 1 tablet by oral route 2 times every day 01/17/2016 gabapentin 100 mg capsule take 1 capsule by oral route 2 times every day 01/03/2016 gabapentin 300 mg capsule take 2 capsule by oral route every day 05/22/2016 hydrocodone 5 mg-acetaminophen 325 mg tablet take 1 tablet by oral route every 6 hours as needed for pain 06/04/2016 Otterbein 10 mg-325 mg tablet take 1-2 tablet by oral route every 4 - 6 hours as needed for pain 05/22/2016 tramadol 50 mg tablet take 1 - 2 tablets by ORAL route every day as needed 06/04/2016 Valium 5 mg tablet take 1 - 2 Tablet by oral route every 8 hours as needed for spasm Counseling/Educational Factors: Counseling / educational factors reviewed. Counseling / educational factors reviewed. This is a visit of 60 minutes. 50 minutes were spent counseling. The patient was checked out at 4:31 PM. This document may have been created using voice recognition software or other electronic means and may contain inadvertent spare parts clerk errors. Provider: Jay NORWOOD 05/30/2016 05:46 PM Document generated by: Jay Tan 05/30/2016 05:46 PM CC Providers: Mela [address] Mor[place] [facility] [id number] [place] [address] w w lavon Chang s r c l i n i c s Charlene o perry g Hospital Course: Hospital Course: The patient was admitted through same day surgery and subsequently underwent a C5-6 anterior cervical discectomy and fusion, with allograft bone, & anterior cervical plating from C5-6. The patient tolerated the procedure well. The patient was then was transferred to PACU and then to the OSC floor. The patient was admitted for postoperative pain control, PT/OT, supervised for likely chronic pain syndrome co-morbidities with inpatient nurse monitoring, continuous pulse oximetry, and discharge planning. The Patient's overnight course was within normal limits. Currently the patient has complaints of surgical site pain, dysphagia, posterior referred myofascial inflammatory pain/spasm adequately controlled with her current postoperative analgesics & muscle relaxants. There is significant improvement of the patient' s residual myelopathic symptoms including but not limited to the symptoms related to her right upper extremity & lower back spasm. The patient denies headache, severe sore throat or dysphagia, chest pain, shortness of breath, abdominal pain, nausea, vomiting, constipation, diarrhea, or any new onset &/or location of pain, weakness or paresthesias aside from the surgical site. PHYSICAL EXAM This is a well developed, well nourished, female who is alert, cooperative, and appears to be in no acute distress with a pleasant affect & euthymic mood. Exam of the head is normocephalic. PERRL, EOMI, without facial droop, hearing grossly intact, nostrils patent, oral cavity and pharynx normal. Voice is within normal limits Exam or the heart reveals regular rate and rhythm without audible murmurs The lungs are clear to auscultation bilaterally. The abdomen is non- tender and non-distended. Exam of the anterior cervical surgical wound reveals that it is clean, dry, and intact; without signs of infection, inflammation, and/or hematoma. There is less than 30 mL operative from surgical drain in the last 8 hour period. Gross exam of the extremities reveals strength & sensation are grossly intact within the patient's normal baseline limits improve diminished sensation & talent acquisition operations manager strength in the right upper extremity. The patient was eventually able to get out of bed and ambulate within acceptable limits. Therapy services made recommendations for disposition. Flatus was appreciated and the patient was able to void without significant difficulty. The pain was gradually under control. The patient was afebrile on discharge. The patient's incision(s) was clean, dry and intact. The dressing was changed to the Surgeon's specifications. The output from the wound drain was less then 30cc's in an 8 hour period at discharge and therefore the drain was removed. The patient progressed well with rehabilitation and was subsequently discharged to home in stable condition. The patient verbally affirmed understanding when given clear instruction regarding the postoperative care and follow-up including but not limited to seeking immediate medical attention for chest pain, shortness of breath, a temperature greater than 101.5 F, severe uncontrolled pain or weakness, loss of bowel or bladder function, choking, lots or drainage, pus discharge or constipation. All questions were answered. Disposition: Home in stable condition. Follow-up Plan: Follow-up with physician admin assistant in outpatient neurosurgical clinic in 1 week for wound check. Buspirone (Buspirone) 10 Mg Tablet 10 MG PO DAILY (Reported) Gabapentin (Gabapentin) 600 Mg Tablet 600 MG PO HS (Reported) Discharge Medications: Prescribed during the patient's preoperative appointment. Attending Statement: All documentation reviewed & orders authorized by Dr. Shen Escobedo M.D. copies to: Mela Blas Scott PA-C Jun 06, 2016 09:45
--- NOTE | 2016-06-06 10:32 | DRSVH ---
PROCEDURE: X-RAY CERVICAL SPINE, 1 VIEW INDICATIONS: 61-year-old female status post C5-C6 anterior cervical discectomy and fusion. TECHNIQUE: Single lateral view of the cervical spine acquired. COMPARISON: [facility], CR, XR CERVICAL SPINE 1VW, 06/05/2016, 9:13. [facility], CR, XR CERVICAL SPINE 1VW, 06/05/2016, 7:58. [facility], CR, XR CERVICAL SPIN LAT F L EX 3VW, 05/02/2016, 12:50. FINDINGS: Bones: Patient is status post C5-C6 discectomy with interbody fusion and anterior fixation. Surgical hardware remains intact and in expected positions. There is C4-C5 and C6-C7 disc degeneration. No f ractures or dislocations to the T1 level. No suspicious bony lesions. Soft tissues: Overlying surgical drain is present. No prevertebral soft tissue swelling. IMPRESSION: C5-C6 anterior cervical discectomy and fusion hardware appears intact and in expected pos itions. Dictated by: Jakub Palmer M.D. on 06/06/2016 at 10:30 Approved by: Jakub Palmer M.D. on 06/06/2016 at 10:30
--- NOTE | 2016-06-06 10:34 | NUR ---
Evaluation completed. Please go to "Notes" then click on "Assessments and Notes" (bottom left corner of screen). Then select appropriate discipline tab on top of screen.
[2016-06-06] MEDS ORDERED: Succinylcholine Chloride 20 mg/mL 5 mL Inj ONE (11:24)
[2016-06-06] MEDS ORDERED: Dexamethasone 4 mg/mL Inj ONE (11:24)
[2016-06-06] MEDS ORDERED: Rocuronium 10 mg/mL 5 mL Inj ONE (11:24)
[2016-06-06] MEDS ORDERED: Ondansetron 2 mg/mL 2 mL Inj ONE (11:24)
[2016-06-06] MEDS ORDERED: Glycopyrrolate 0.2 mg/mL 5 mL Inj ONE (11:24)
[2016-06-06] MEDS ORDERED: EPHEDrine/NS 5 mg/mL 5 mL Syringe ONE (11:24)
[2016-06-06] MEDS ORDERED: Propofol 10 mg/mL 20 mL Inj ONE (11:24)
[2016-06-06] MEDS ORDERED: Neostigmine 1 mg/mL 5 mL Inj ONE (11:24)
--- NOTE | 2016-06-06 11:32 | NUR ---
Social Work Screen/Discharge EMR reviewed. Pt is a 61Y old female admitted for Cervical Spondylosis with Myelopathy. Per EMR, pt lives at home with her spouse in [place]. Pt medically stable and discharging home via POV. No needs identified. CASSY Mcdermott
--- NOTE | 2016-06-06 11:39 | NUR ---
Discharge Pt DC home with boyfriend. AWILDA drain removed s/p 8 hours with less than 30cc output. Dressing instructions followed and pt educated on showering and has follow up appointment scheduled with Jay Tan next week. Pain well controlled with PO Vicodin. Pt denies muscle spasms and refused Valium prior to DC. Pt has filled prescriptions and is eager to go. PT cleared pt to home and pt understands risks with falls and has set up house safely. No oxygen needs overnight and VSS.
== END 2016-06-06 11:25 | disposition home or self-care (01) | DRG 321 ==
LOC: SAS 05:39 → OSC 14:30
PROVIDERS: ADMIT Neurological Surgery; ATTEND Neurological Surgery
PROC: 0RG20K0 Fusion of 2 or more Cervical Vertebral Joints with Nonautologous Tissue Substitute, Anterior Approach, Anterior Column, Open Approach (ICD-10-PCS; 2016-06-05)
PROC: 0RT30ZZ Resection of Cervical Vertebral Disc, Open Approach (ICD-10-PCS; principal; 2016-06-05 07:30)
DX: M47.12 Other spondylosis with myelopathy, cervical region (principal); I10 Essential (primary) hypertension; E11.9 Type 2 diabetes mellitus without complications; F41.8 Other specified anxiety disorders; F17.200 Nicotine dependence, unspecified, uncomplicated; M79.7 Fibromyalgia